=== PATIENT | male | born 1960 | race Caucasian/White ===

== ENCOUNTER → 2024-08-08 13:27 | Outpatient (REF) | payer OTHER, SELFPAY | LOC: RCS 13:27 | PROVIDERS: ATTENDING PHYSICIAN Internal Medicine Cardiovascular Disease; FAMILY PHYSICIAN Family Medicine | DX: Z95.5 Presence of coronary angioplasty implant and graft (principal); R00.2 Palpitations; R07.9 Chest pain, unspecified; I25.10 Atherosclerotic heart disease of native coronary artery without angina pectoris; I49.3 Ventricular premature depolarization | CPT/HCPCS: 93017; 93350 ==

== ENCOUNTER 2024-10-08 20:58 | Emergency (ER) | payer OTHER, SELFPAY ==
[2024-10-08 21:02] VITALS: BP 172/81
[2024-10-08 21:11] VITALS: BMI 31.6
[2024-10-08 21:13] VITALS: BP 165/74
[2024-10-08 21:23] LABS: % Basophils 0.5 % (0-2); % Eosinophils 3.3 % (0-6); % Immature Granulocytes 0.8 % (0-0.5); % Lymphocytes 16.6 % (20.5-51.1); % Monocytes 11.2 % (1.7-9.3); % Neutrophils 67.6 % (42.2-75.2); Absolute Basophils 0.1 10^3/uL (0-0.2); Absolute Eosinophils 0.4 10^3/uL (0-0.7); Absolute Immature Granulocytes 0.1 10^3/uL (0-0.05); Absolute Lymphocytes 2.1 10^3/uL (1.2-3.4); Absolute Monocytes 1.4 10^3/uL (0.1-0.6); Absolute Neutrophils 8.6 10^3/uL (1.4-6.5); Hematocrit 38.6 % (39.0-52.0); Mean Corp Hgb Conc. 36.3 g/dL (33.0-37.0); Mean Corpuscular Hgb 32.4 pg (27.0-31.0); Mean Corpuscular Volume 89.4 fL (80.0-94.0); Mean Platelet Volume 11.9 fL (7.4-10.4); Nucleated Red Blood Cells % 0 % (-); Platelet Count 151 10^3/uL (130-400); Red Blood Cell Count 4.32 10^6/uL (4.70-6.10); White Blood Cell Count 12.8 10^3/uL (4.8-10.8)
[2024-10-08 21:36] LABS: ALT (SGPT) 29 U/L (0-50); AST (SGOT) 24 U/L (17-59); Albumin 4.2 g/dl (3.5-5.0); Alkaline Phosphatase 106 U/L (38-126); Blood Urea Nitrogen 18 mg/dl (9-20); Calcium 9.2 mg/dl (8.4-10.2); Carbon Dioxide 28 mmol/L (22-30); Chloride 109 mmol/L (98-107); Estimated Creatinine Clearance 73 ml/min; Glucose 103 mg/dl (70-99); Potassium 4.3 mmol/L (3.5-5.1); Sodium 141 mmol/L (135-145); Total Bilirubin 0.8 mg/dl (0.2-1.3); Total Protein 7.1 g/dl (6.3-8.2); eGFR > 60.00
[2024-10-08 21:48] LABS: Troponin I 0.028 ng/ml
[2024-10-08 22:00] VITALS: BP 154/74
[2024-10-08] MEDS: NITROSTAT (SUBLINGUAL) 0.4 MG SL (22:27)
[2024-10-08 23:00] VITALS: BP 149/68
[2024-10-09] VITALS: BP 144/77
[2024-10-09 00:18] LABS: Troponin I 0.032 ng/ml
--- NOTE | 2024-10-09 00:33 | ED.GENMED ---
History of Present Illness
General
Chief Complaint: Chest Pain
Source: patient
Exam Limitations: none
Time Seen by Provider: 10/08/24 21:57
Nursing documentation reviewed up to this point in time: agreed with
History of Present Illness
History of Present Illness:
64-year-old male with history of CAD, HTN, HLD presents stating he felt pain across his upper chest which was 'faint' this morning. He states it was 'more noticeable as the day went on.' He states it was 1/10 this morning and now it is 5/10. It
is a dull nonradiating pain. There are no associated symptoms such as sweating, nausea, lightheadedness or shortness of breath.
He is very active and he did go to the gym last night and lifted weights as usual nothing different, he played Humle ball 2 days ago which he does twice a week.
Patient states he saw his high school assistant principal Dr. Velasquez and had a stress echo on 08/19 which was 'clean.'
Past History
Past History
ED Past Medical History: CAD, HTN and Hypercholesterolemia
ED Past Surgical History: Cardiac (Cardiac catheterization 12/2019 )
Social History
Tobacco: Non-smoker
Alcohol: Occasional
Personal:
Living: with family
Employment: Employed
Review of Systems
Review of Systems
Allergies reviewed?: Yes
All Other Systems: ROS reviewed and negative except as documented in HPI and ROS
Constitutional: Denies fatigue
Respiratory: Denies trouble breathing
Cardiac: Reports chest pain; Denies diaphoresis or palpitations
ABD/GI: Denies abdominal pain or nausea
Musculoskeletal: Reports no symptoms
Skin: Reports no symptoms
Neurological: Reports no symptoms
Phy Exam
Physical Exam
Physical Exam:
GENERAL: No acute distress. A&Ox3.
CONSTITUTIONAL: Afebrile.
EYES: clear, conjunctivae normal
ENMT: moist mucus membranes
RESPIRATORY: Regular respirations, nonlabored, lungs clear.
CARDIOVASCULAR: Regular rate and rhythm, no murmurs, no rubs.
GI: Soft, nontender, normal BS
MUSCULOSKELETAL: Unable to reproduce chest pain with palpation or movement. Moves with ease. Well perfused.
SKIN: Warm, dry, pink
PSYCH: Normal mood and affect. Well kept, interactive and appropriate
NEUROLOGIC: Awake, alert and oriented. No focal neurological deficits
Scores
Heart Score for Chest Pain Patients
STEMI patient?: No
History: Slightly or Non-Suspicious
ECG: Normal
Age: >/= 65 years
Risk Factors: >/= 3 Risk Factors or History of CAD
Troponin: </= Normal Limit
Heart Score for Chest Pain Patients: 4
Heart Score Risk: 20.3% MACE over next 6 weeks
Course
Orders/Labs/Results
Orders:
Orders
10/08/24 21:00
EKG [Electrocardiogram (*1)] Urgent
Reason for Study: Chest Pain
EKG- Treatment ONCE
10/08/24 21:14
Complete Blood Count/With Diff Urgent
Comprehensive Metabolic Panel Urgent
Troponin I Urgent
10/08/24 21:59
CR Chest - 2 Views Urgent
Comment:
Reason For Exam: chest pain
10/08/24 22:21
Nitroglycerin Sublingual [Nitrostat (Sublingual)] 0.4 mg SL NOW STA
10/08/24 22:23
EKG- Treatment ONCE
10/08/24 23:42
Troponin I Urgent
10/08/24 23:55
Electrocardiogram (*1) Urgent
Reason for Study: Chest Pain
10/09/24 00:47
EKG [Electrocardiogram (*1)] Urgent
Reason for Study: Chest Pain
10/09/24 00:48
EKG- Treatment ONCE
Abnormal Lab Results
10/08/24
21:14
WBC 12.8 H 10^3/uL
(4.8-10.8)
RBC 4.32 L 10^6/uL
(4.70-6.10)
Hct 38.6 L %
(39.0-52.0)
MCH 32.4 H pg
(27.0-31.0)
MPV 11.9 H fL
(7.4-10.4)
Abs Immat Gran (auto) 0.1 H 10^3/uL
(0-0.05)
Absolute Neuts (auto) 8.6 H 10^3/uL
(1.4-6.5)
Absolute Monos (auto) 1.4 H 10^3/uL
(0.1-0.6)
Immature Gran % 0.8 H %
(0-0.5)
Lymphocytes % 16.6 L %
(20.5-51.1)
Monocytes % 11.2 H %
(1.7-9.3)
Chloride 109 H mmol/L
(98-107)
Glucose 103 H mg/dl
(70-99)
10/08/24 21:14
10/08/24 21:14
Vital Signs
Initial and Last Documented VS:
Initial Vital Signs
Temp Pulse Resp BP Pulse Ox
98.5 F 79 18 172/81 98
10/08/24 21:02 10/08/24 21:02 10/08/24 21:02 10/08/24 21:02 10/08/24 21:02
Last Documented Vital Signs
Temp Pulse Resp BP Pulse Ox
98.5 F 74 17 153/80 97
10/08/24 21:02 10/09/24 01:00 10/09/24 01:00 10/09/24 01:00 10/09/24 01:00
Tree Chipper consulted with Physician
Tree Chipper consulted with physician?: Yes
Name of Physician Consulted: Reilly
MDM/Problems Addressed
Differential Diagnosis Includes:
ACS, [place], musculoskeletal pain
MDM/Problems Addressed:
64-year-old male with history of CAD, HTN, HLD presents stating he felt pain across his upper chest which was 'faint' this morning. He states it was 'more noticeable as the day went on.' He states it was 1/10 this morning and now it is 5/10. It
is a dull nonradiating pain. There are no associated symptoms such as sweating, nausea, lightheadedness or shortness of breath.
He is very active and he did go to the gym last night and lifted weights as usual nothing different, he played pickle ball 2 days ago which he does twice a week.
Patient states he saw his high school assistant principal Dr. Velasquez and had a stress echo on 08/19 which was 'clean.'
EKG NSR
Stress echo of 08/08/2024 reviewed, negative
10:00 PM:
CBC with WBC 12.8
CMP normal
Troponin 0.032
11:00 PM:
Chest x-ray: NAD
Patient states when he lifted his arms in the chest x-ray room it reproduced the pain in his mid chest. He is wondering if it is not muscular due to his increased activity the past few days
No change in chest pain after nitroglycerin.
10/09/2024 12:30 AM
Troponin #2 minimally bumped: 0.032
EKG #2 NSR, unchanged
Patient had a negligible bump in his troponin, EKG is unchanged, NSR, he has had the pain all day, it has been constant, no relief with nitroglycerin, has had increased workout activity and he feels it is musculoskeletal, doubt this is cardiac
related pain
Discussed staying for 3rd Troponin vs going home and close cardiac f/u which they are comfortable doing
His information was sent to the [facility] cardiac hotline for close follow-up
Patient and are aware of return instructions and are both comfortable going home.
Case discussed with Dr. Grover who reviewed records and agrees with assessment and plan
*EKG
EKG Intrepretation Date: 10/09/24
Interpretation: normal
Heart Rate: 81
Rate: normal
Rhythm: sinus
[place]: normal axis
Interval: normal interval
QRS Pattern: normal QRS
Ischemia: no ischemia
*Critical Care Note
Total Time (30-74mins, 75-104mins- exclusive of procedures): Not Applicable
ED Attending Note
-
Portions of this chart may have been created with voice recognition software.� Occasional wrong word or��sound alike� substitutions may have occurred due to the inherent limitations of voice recognition software.
Discharge Plan
Departure
Patient Disposition: Home (Routine Discharge)
Date of Disposition: 10/09/24
Time of Disposition: 00:56
Patient with high blood pressure during this ER visit?: No
Condition: Good
Discharge Problem:
Atypical chest pain
Instructions: Chest Pain DCA Follow Up
Prescriptions:
No Action
multivitamin [Daily Multiple] 1 EACH tablet
1 ea PO DAILY
atorvastatin 40 MG tablet
40 mg PO QPM Qty: 90 3RF
nitroglycerin 0.4 MG tablet, sublingual
0.4 mg sublingual [id number] PRN (Reason: chest pain) Qty: 25 2RF
Patient Comments:
has it available, but has never needed to take it.
candesartan 32 MG tablet
32 mg PO QPM
coenzyme [id number] 1 CAP capsule
2 cap PO DAILY
lutein 20 MG tablet
20 mg PO DAILY
aspirin 81 MG tablet,delayed release (DR/EC)
81 mg PO HS
Referrals:
Dima Lu MD [Family Provider] -
Hilton Scott MD [Active] - Tomorrow
Activity Restrictions/Additional Instructions:
As we discussed, someone from the cardiology group should call you tomorrow for follow-up.
No exercising or strenuous activity until further instructed by the high school assistant principal.
Return here immediately for worsening chest pain, chest pain associate with shortness of breath, nausea, breaking out in a sweat or lightheadedness or feeling sicker in any way
Interventions
Interventions:
*Risk Screen - Suicide Last Done: 10/08/24 21:02
*General Assessment Last Done: 10/08/24 21:02
*Neglect/Abuse Screening Last Done: 10/08/24 21:02
*ED- Fall Risk Assessment Last Done: 10/08/24 21:02
*ED COVID-19 Vaccine History Last Done: 10/08/24 21:02
*Nursing Disposition Last Done: 10/09/24 01:06
ED- Cardiac Assessment Last Done: 10/08/24 21:11
Discharge Date and Time
Discharge Date/Time: 10/09/24 01:11
Print Language: MALAGASY
[2024-10-09 01:00] VITALS: BP 153/80
== END 2024-10-09 01:11 | disposition home or self-care (01) ==
LOC: EMR 20:58
PROVIDERS: Registered Nurse; EMERGENCY PHYSICIAN Emergency Medicine; FAMILY PHYSICIAN Family Medicine
DX: R07.89 Other chest pain (principal); I25.10 Atherosclerotic heart disease of native coronary artery without angina pectoris; I10 Essential (primary) hypertension; E78.00 Pure hypercholesterolemia, unspecified
CPT/HCPCS: 99285; 71046; 80053; 84484; 85025; 93005